=== PATIENT | male | born 1980 | race Caucasian/White ===

== ENCOUNTER 2016-10-18 21:00 | Emergency (ER) | payer OTHER ==
--- NOTE | 2016-10-18 22:18 | EDPHY ---
H & P Stated Complaint: head LAC Time Seen by Provider: 10/18/16 22:07 HPI/ROS: CHIEF COMPLAINT: Fall at home, head laceration HISTORY OF PRESENT ILLNESS: The patient presents to the ED for evaluation of a head laceration he sustained after he fell at home. The patient reportedly tripped over a laundry striking his head on a marble table. The patient did not lose consciousness. The patient denies acute headache. The patient denies associated neck pain, chest pain, back pain, numbness weakness or additional complaints. The patient reports he is uncertain when his last tetanus shot was. The patient denies additional injury. REVIEW OF SYSTEMS: A comprehensive 10 point review of systems is otherwise negative aside from elements mentioned in the history of present illness. Source: Patient Exam Limitations: No limitations - Personal History Current Tetanus Diphtheria and Acellular Pertussis (TDAP): Yes - Medical/Surgical History Hx Asthma: No Hx Chronic Respiratory Disease: No Hx Diabetes: No Hx Cardiac Disease: No Hx Renal Disease: No Hx Cirrhosis: No Hx Alcoholism: No Hx HIV/AIDS: No Hx Splenectomy or Spleen Trauma: No - Social History Smoking Status: Never smoked - Physical Exam Exam: General Appearance: Alert, no distress Head: 3 cm laceration noted over the forehead, no hematoma Eyes: Pupils equal, round, reactive ENT, Mouth: No hemotympanum, no oral trauma Neck: Nontender, trachea midline Respiratory: No chest wall tender, subcutaneous air, lungs clear bilaterally Cardiovascular: Regular rate and rhythm Abdomen: Abdomen is soft and nontender, pelvis stable Skin: No lacerations, No abrasion Back: No midline T/L/S pain Extremities: Nontender, full range of motion Neurological: A&Ox3, normal motor function, normal sensory exam Constitutional: Initial Vital Signs Temperature (C) 36.8 C 10/18/16 21:12 Heart Rate 92 10/18/16 21:12 Respiratory Rate 20 10/18/16 21:12 Blood Pressure 120/81 H 10/18/16 21:12 O2 Sat (%) 92 10/18/16 21:12 Allergies/Adverse Reactions: Penicillins Allergy (Verified 10/18/16 21:11) wheat Allergy (Verified 10/18/16 21:11) Home Medications: Medication Instructions Recorded NK [No Known Home Meds] 10/18/16 Medical Decision Making Procedures: Procedure: Laceration repair. Verbal consent was obtained from the patient. The 3 cm laceration on the facial was anesthetized using lidocaine with epinephrine. The wound was irrigated per protocol, draped and explored to its base with a gloved finger. There were no deep structures involved. The wound was repaired with 10 6-0 Prolene sutures. The wound repair was simple. The procedure was performed by myself. ED Course/Re-evaluation: The patient is well-appearing and in no acute distress. The patient's GCS is 15. The patient had his laceration anesthetized and irrigated. The patient's tetanus shot was updated. His laceration was repaired by myself. The patient will be discharged home with customary laceration aftercare instructions. Differential Diagnosis: Differential diagnosis considered includes intracranial hemorrhage, skull fracture, facial laceration, a globe injury - Data Points Medications Given: Discontinued Medications Diphtheria/Tetanus/Acell Pertussis (Boostrix) 0.5 ml IM .ONCE ONE Stop: 10/18/16 22:23 Last Admin: 10/18/16 22:31 Dose: 0.5 ml Departure - Departure Disposition: Home, Routine, Self-Care Clinical Impression: Facial laceration Condition: Good Instructions: Laceration (ED) Additional Instructions: 1. Please return to the emergency department 5 days for suture removal. 2. Take Ibuprofen or Motrin 600 mg by mouth three times a day. Referrals: NONE *PRIMARY CARE P,. [Primary Care Provider] - As per Instructions
[2016-10-18] MEDS ORDERED: TDAP ADULT 0.5 ML INJ (BOOSTRIX) IM ONE (22:22)
[2016-10-18 22:51] VITALS: BP 121/83; PULSE 91; RESP 16; TEMP 97.9; O2SAT 94
== END 2016-10-18 22:51 | disposition home or self-care (01) ==
PROC: 0HQ1XZZ Repair Face Skin, External Approach (ICD-10-PCS; principal; 2016-10-18)
DX: S01.82XA Laceration with foreign body of other part of head, initial encounter (principal); Z23 Encounter for immunization; W01.10XA Fall on same level from slipping, tripping and stumbling with subsequent striking against unspecified object, initial encounter; Y92.009 Unspecified place in unspecified non-institutional (private) residence as the place of occurrence of the external cause